=== PATIENT | male | born 1965 | race Caucasian/White ===

== ENCOUNTER 2017-08-28 13:41 | Emergency (ER) | payer OTHER ==
[2017-08-28 14:06] VITALS: BP 127/83; PULSE 79; TEMP 97.7; BMI 30.1
--- NOTE | 2017-08-28 14:57 | PDOC ---
History of Present Illness - History of Present Illness Initial Comments: 08/28/17 15:21 "The patient is a 52 year old male, with a significant past medical history of bipolar disorder, who presents to the emergency department with, insomnia for 2 days. The patient states he called his Psychiatrist Dr. Gita Rosen in [place] (pt. reports he is in town visiting) who advised he come to the ED for evaluation. The patient states he has tried Ambien for insomnia in the past but it no longer works for him. The patient states he does not feel manic at this time. He denies any auditory or visual hallucinations. He denies any suicidal or homicidal ideations. He denies any recent fevers, chills, headache or dizziness. He denies any recent nausea, vomit, diarrhea or constipation. He denies any recent chest pain or shortness of breath. Allergies: NKA Past surgical history: None reported. Psychiatrist: Dr. Gita Rosen " <Krystian Jacinto - Last Filed: 08/28/17 15:20> <Kevin Rachel - Last Filed: 08/28/17 15:35> - General Chief Complaint: Psychiatric Stated Complaint: NO SLEEP FOR 2 NIGTHS Time Seen by Provider: 08/28/17 13:58 Past History - Past Medical History COPD: No GI Disorders: Yes (IBS,chrohn's) Psychiatric Problems: Yes (bipolar) - Suicide/Smoking/Psychosocial Hx Smoking Status: Yes Smoking History: Former smoker Have you smoked in the past 12 months: No Number of Cigarettes Smoked Daily: 15 If you are a former smoker, when did you quit?: 20years ago Information on smoking cessation initiated: No Hx Alcohol Use: No Drug/Substance Use Hx: No Substance Use Type: None <Krystian Jacinto - Last Filed: 08/28/17 15:20> <Kevin Rachel - Last Filed: 08/28/17 15:35> - Past Medical History Allergies/Adverse Reactions: Allergies Allergy/AdvReac Type Severity Reaction Status Date / Time No Known Allergies Allergy Verified 08/28/17 13:58 Home Medications: Ambulatory Orders Aripiprazole [Abilify] 0 mg PO HS 08/28/17 Atorvastatin Ca [Lipitor] 20 mg PO HS 08/28/17 Budesonide [Uceris (Nonformulary)] 9 mg PO DAILY 08/28/17 Diazepam [Valium] 5 mg PO DAILY PRN #7 tablet MDD 1 tab 08/28/17 [place] Carbonate [Eskalith -] 300 mg PO AM 08/28/17 [place] Carbonate [Eskalith -] 600 mg PO HS 08/28/17 Review of Systems - Review of Systems Comments:: 08/28/17 15:02 "GENERAL/CONSTITUTIONAL: No fever or chills. HEAD, EYES, EARS, NOSE AND THROAT: No change in vision. No ear pain or discharge. No sore throat. CARDIOVASCULAR: No chest pain or shortness of breath. RESPIRATORY: No cough, wheezing, or hemoptysis. GASTROINTESTINAL: No nausea, vomiting, diarrhea or constipation. GENITOURINARY: No dysuria, frequency, or change in urination. MUSCULOSKELETAL: No joint or muscle swelling or pain. No neck or back pain. SKIN: No rash NEUROLOGIC: No headache, vertigo, loss of consciousness, or change in strength/ sensation. ENDOCRINE: No increased thirst. No abnormal weight change. HEMATOLOGIC/LYMPHATIC: No anemia, easy bleeding, or history of blood clots. ALLERGIC/IMMUNOLOGIC: No hives or skin allergy. PSYCH: + insomnia, no SI/HI/AVH <Ou,Krystian - Last Filed: 08/28/17 15:20> *Physical Exam - Vital Signs Last Vital Signs Temp Pulse Resp BP Pulse Ox 97.7 F 79 18 127/83 98 08/28/17 13:43 08/28/17 13:43 08/28/17 13:43 08/28/17 13:43 08/28/17 13:43 - Physical Exam Comments: 08/28/17 15:02 "GENERAL: Awake, alert, and fully oriented, in no acute distress HEAD: No signs of trauma EYES: PERRLA, EOMI, sclera anicteric, conjunctiva clear ENT: Auricles normal inspection, hearing grossly normal, nares patent, oropharynx clear without exudates. Moist mucosa NECK: Nontender, no stepoffs, Normal ROM, supple, no lymphadenopathy, JVD, or masses LUNGS: Breath sounds equal, clear to auscultation bilaterally. No wheezes, and no crackles HEART: Regular rate and rhythm, normal S1 and S2, no murmurs, rubs or gallops ABDOMEN: Soft, nontender, normoactive bowel sounds. No guarding, no rebound. No masses EXTREMITIES: Normal range of motion, no edema. No clubbing or cyanosis. No cords, erythema, or tenderness NEUROLOGICAL: Cranial nerves II through XII intact. 5/5 strength and sensation in all extremities, Normal speech, normal gait, normal cerebellar function SKIN: Warm, Dry, normal turgor, no rashes or lesions noted. " <Krystian Jacinto - Last Filed: 08/28/17 15:20> - Vital Signs Last Vital Signs Temp Pulse Resp BP Pulse Ox 97.7 F 79 18 127/83 98 08/28/17 13:43 08/28/17 13:43 08/28/17 13:43 08/28/17 13:43 08/28/17 13:43 <Kevin Rachel - Last Filed: 08/28/17 15:35> Medical Decision Making - Medical Decision Making 08/28/17 14:48 52 M with bipolar disorder presenting with difficulty sleeping x 2 days. Pt very well appearing. No pressured speech or psychomotor agitation. Has clear insight into his condition and does not feel like he is having a manic episode. Denies SI/HI/AVH. I spoke with pt's psychiatrist in [place], Dr. Gita Miller, who recommends starting pt on a benzo. - Will send 7 day course of valium 5mg PO to pt's pharmacy - F/u psych <Krystian Jacinto - Last Filed: 08/28/17 15:20> *DC/Admit/Observation/Transfer - Attestations Physician Attestion: 08/28/17 14:59 I, Dr. Krystian Jacinto MD, attest that this document has been prepared under my direction and personally reviewed by me in its entirety. I further attest, that it accurately reflects all work, treatment, procedures and medical decision -making performed by me. <Krystian Jacinto - Last Filed: 08/28/17 15:20> - Attestations Scribe Attestion: 08/28/17 15:35 Documentation prepared by Kevin Rachel, acting as medical anthropologist for Krystian Jacinto MD. <Kevin Rachel - Last Filed: 08/28/17 15:35> Diagnosis at time of Disposition: Insomnia - Discharge Dispostion Disposition: HOME Condition at time of disposition: Stable - Prescriptions Prescriptions: Diazepam [Valium] 5 mg PO DAILY PRN #7 tablet MDD 1 tab PRN Reason: Insomnia - Patient Instructions Printed Discharge Instructions: DI for Insomnia Additional Instructions: Take one valium every night before bed. Do not use more than directed. Do not take with alcohol or other substances. Call your psychiatrist as soon as possible to make a follow up appointment. If you experience continued insomnia, hallucinations, mood changes, or any other concerning symptoms, return to the ER immediately.
== END 2017-08-28 15:29 | disposition home or self-care (01) ==
LOC: FER 13:41
DX: G47.00 Insomnia, unspecified (principal); Z87.891 Personal history of nicotine dependence; F31.9 Bipolar disorder, unspecified; K58.9 Irritable bowel syndrome, unspecified
CPT/HCPCS: 99282-25